=== PATIENT | male | born 1970 | race Hispanic/Latino ===

== ENCOUNTER 2017-09-16 08:30 | Emergency (ER) | payer OTHER ==
[2017-09-16] MEDS ORDERED: Fluorescein Opthalmic Strip ONE (09:42)
[2017-09-16] MEDS ORDERED: Proparacaine 0.5% Opth 15 ML BOT ONE (09:42)
== END 2017-09-16 10:30 | disposition home or self-care (01) ==
LOC: ERS 08:30
DX: T15.91XA Foreign body on external eye, part unspecified, right eye, initial encounter (principal)
CPT/HCPCS: 65210